=== PATIENT | female | born 1985 | race Caucasian/White ===

== ENCOUNTER 2017-11-25 14:57 | Emergency (ER) | payer MEDICAID ==
[~2017-11-25] VITALS: Ht 162.6 cm; Wt 73.0 kg
[2017-11-25 15:16] VITALS: BP 130/71
--- NOTE | 2017-11-25 15:22 | NUR ---
pt to lobby awaiting available room. patient provided with ua cup and explained need of urine sample. patient verbalized understanding.
--- NOTE | 2017-11-25 16:58 | NUR ---
PT AMBULATES TO BED 7
--- NOTE | 2017-11-25 17:00 | NUR ---
32/F BIB FRIEND with c/o right sided mid back pain radiating to right side lower ABDOMEN x 5 days. TOOK IBUPROFEN [id number] TABS AT 1 PM TODAY. Patient denies any recent injury or fall. Patient denies any bowel or urinary incontinence. hx--hyperthyroidism. DENIES N/V/D; SKIN IS PINK/WARM/DRY; AAOX4 WITH EVEN AND STEADY GAIT; LUNGS CLEAR BL. PT DENIES ANY FEVER, CP, SOB, OR COUGH AT THIS TIME; PATIENT STATES PAIN OF 10/10 AT THIS TIME. PATIENT POSITIONED FOR COMFORT; HOB ELEVATED; BEDRAILS UP X2; BED DOWN. ER MD MADE AWARE OF PT STATUS.
--- NOTE | 2017-11-25 17:24 | NUR ---
Patient being evaluated by DR LUNA at bedside.
[2017-11-25] MEDS ORDERED: MORPHINE SULFATE 2 MG/ML SYR IM ONE (17:30)
[2017-11-25] MEDS ORDERED: KETOROLAC 60 MG/2 ML VIAL IM ONE (17:30)
[2017-11-25] MEDS ORDERED: MORPHINE SULFATE 4 MG/ML SYR IM ONE (18:00)
[2017-11-25 19:08] VITALS: BP 107/58
[2017-11-25 19:30] LABS: APPEARANCE,URINE TURBID (CLEAR); BILIRUBIN,URINE NEGATIVE (NEGATIVE); BLOOD, URINE NEGATIVE (NEGATIVE); COLOR,URINE YELLOW (YELLOW); NITRITE, URINE NEGATIVE (NEGATIVE); PH,URINE 5.5 (5.0-9.0); UGLUCOSE NEGATIVE (NEGATIVE)
[2017-11-25 19:31] LABS: LEUKOCYTE ESTERASE ,URINE NEGATIVE (NEGATIVE)
[2017-11-25 19:33] LABS: RBC,URINE 0-5 (RARE) /HPF (0-5); URINE AMORPHOUS URATE 4+ /HPF (None Seen); WBC,URINE 0-5 (RARE) /HPF (0-5)
== END 2017-11-25 19:09 | disposition home or self-care (01) ==
LOC: MED 14:57
DX: S39.012A Strain of muscle, fascia and tendon of lower back, initial encounter (principal); X58.XXXA Exposure to other specified factors, initial encounter; Y93.89 Activity, other specified; Y99.8 Other external cause status; Y92.89 Other specified places as the place of occurrence of the external cause
CPT/HCPCS: 81001; 81025; 87086; 96372; 99284; J1885; J2270

== ENCOUNTER 2022-10-02 17:48 | Emergency (ER) | payer SELFPAY ==
[~2022-10-02] VITALS: Ht 162.6 cm; Wt 73.7 kg
[2022-10-02 18:05] VITALS: BP 137/75
[2022-10-02] MEDS ORDERED: cefTRIAXone 500 MG in LIDOCAINE MPF 1% 1 ML IM ONE (18:25)
--- NOTE | 2022-10-02 18:28 | NUR ---
AMB. TO BED WITH NO DIFFICULTY
[2022-10-02] MEDS ORDERED: SULF-58 PO (18:38)
[2022-10-02] MEDS ORDERED: CEPH-588 PO (18:38)
[2022-10-02] MEDS ORDERED: cefTRIAXone 500 MG VIAL ONE (18:41)
[2022-10-02] MEDS ORDERED: LIDOCAINE MPF 1% 5 ML ONE (18:41)
--- NOTE | 2022-10-02 19:00 | NUR ---
Patient discharged with v/s stable. Written and verbal after care instructions given and explained. Patient alert, oriented and verbalized understanding of instructions. Ambulatory with steady gait. All questions addressed prior to discharge. ID band removed. Patient advised to follow up with PMD. Rx of KEFLEX AND SULFAMETHOXAZOLE given. Patient educated on indication of medication including possible reaction and side effects. Opportunity to ask questions provided and answered.
== END 2022-10-02 18:59 | disposition home or self-care (01) ==
LOC: MED 17:48
DX: L03.113 Cellulitis of right upper limb (principal)
CPT/HCPCS: 90471; 90715; 96372; 99284; J0696; J2001

== ENCOUNTER 2023-01-23 19:01 | Emergency (ER) | payer OTHER ==
[~2023-01-23] VITALS: Ht 162.6 cm; Wt 74.8 kg
[~2023-01-23 19:01] MED LIST: CEPH-588 PO; SULF-58 PO
[2023-01-23 19:20] VITALS: BP 114/72; PULSE 89; RESP 16; TEMP 98; O2SAT 99
[2023-01-23] MEDS ORDERED: KETOROLAC 60 MG/2 ML VIAL IM ONE (21:25)
[2023-01-23] MEDS ORDERED: NAPR-54 PO (23:26)
[2023-01-23] MEDS ORDERED: DIAZ5TAB6 PO (23:26)
[2023-01-23 23:38] VITALS: BP 114/72; PULSE 89; RESP 16; TEMP 98; O2SAT 99
== END 2023-01-23 23:38 | disposition home or self-care (01) ==
LOC: MED 19:01
DX: S16.1XXA Strain of muscle, fascia and tendon at neck level, initial encounter (principal); V49.88XA Car occupant (driver) (passenger) injured in other specified transport accidents, initial encounter; Y93.89 Activity, other specified; Y92.89 Other specified places as the place of occurrence of the external cause; Y99.8 Other external cause status
CPT/HCPCS: 72040; 72100; 73521; 96372; 99284; J1885